=== PATIENT | female | born 1955 | race African-American/Black ===

== ENCOUNTER 2017-05-24 01:41 | Emergency (ER) | payer OTHER ==
[2017-05-24] MEDS ORDERED: Ketorolac Tromethamine 30 MG/ML VIAL ONE (02:56)
--- NOTE | 2017-05-24 08:26 | RAD ---
LEFT KNEE 4 VIEWS: Date: 05/24/17 HISTORY: Left knee pain. FINDINGS/IMPRESSION: Comparison made with exam of 03/07/17. Degenerative changes are again seen. No fracture, dislocation, or bony destruction is identified. POS: BUDDY
--- NOTE | 2017-05-24 08:28 | RAD ---
RIGHT KNEE 4 VIEWS: Date: 05/24/17 HISTORY: Fall. Right knee pain. FINDINGS/IMPRESSION: Degenerative changes are present. No acute fracture or dislocation is identified. POS: BUDDY
== END 2017-05-24 03:40 | disposition home or self-care (01) ==
LOC: ERS 01:41
DX: S80.02XA Contusion of left knee, initial encounter (principal); S80.01XA Contusion of right knee, initial encounter; M17.0 Bilateral primary osteoarthritis of knee; I25.2 Old myocardial infarction; E11.9 Type 2 diabetes mellitus without complications; E78.5 Hyperlipidemia, unspecified; I10 Essential (primary) hypertension; Z87.891 Personal history of nicotine dependence; W19.XXXA Unspecified fall, initial encounter
CPT/HCPCS: 96372; J1885

== ENCOUNTER 2017-07-28 19:04 | Inpatient (IN) | payer OTHER ==
[2017-07-28 20:15] LABS: Troponin I 0.096 ng/mL (< 0.028)
[2017-07-28 20:29] LABS: #Lymphocytes 2.4 thou/uL (1.20-3.40); #Monocytes 0.5 thou/uL (0.11-0.59); #Neutrophils 11.4 thou/uL (1.40-6.50); %Basophils 0.1 % (0.0-1.0); %Eosinophils 0.1 % (0.0-10.0); %Lymphocytes 16.8 % (21.0-51.0); %Monocytes 3.3 % (0.0-10.0); Mean Platelet Volume 11.3 fL (7.4-10.4); Red Blood Cell (RBC) Count 5.11 mill/uL (4.20-5.40); White Blood Cell (WBC) Count 14.3 thou/uL (4.8-10.8)
[2017-07-28 20:35] LABS: PTT 25.5 SEC (22.9-36.1); Prothrombin Time 12.8 SEC (12.0-14.7)
[2017-07-28 20:40] LABS: ALT (SGPT) 27 U/L (8-55); AST (SGOT) 11 U/L (5-34); Alkaline Phosphatase 80 U/L (40-150); Anion Gap 13 mmol/L (10-20); BUN (Urea Nitrogen) 50 mg/dL (9.8-20.1); Bilirubin, Total 0.5 mg/dL (0.2-1.2); Calc. Creatinine Clearance 0 mL/min (70-130); Calcium 8.6 mg/dL (7.8-10.44); Carbon Dioxide 24 mmol/L (22-29); Chloride 106 mmol/L (98-107); Estimated GFR-MDRD 20; Globulin 2.9 g/dL (2.4-3.5)
[2017-07-28] MEDS ORDERED: Furosemide 40 MG/4 ML VIAL ONE (21:08)
[2017-07-28] MEDS ORDERED: Heparin 25,000 units/D5W 500 ML ONE (21:08)
[2017-07-28] MEDS ORDERED: HYDROcodone/Acetaminophen 10/325 mg Tablet PO PRN (21:30)
[2017-07-28] MEDS ORDERED: Ondansetron ODT 4 MG TAB SL PRN (22:59)
[2017-07-28] MEDS ORDERED: Ondansetron HCl/PF 4 MG/2 ML Vial IVP PRN ×2 (22:59→23:06)
[2017-07-28] MEDS ORDERED: Acetaminophen 325 MG TAB PO PRN (22:59)
[2017-07-28] MEDS ORDERED: Dextrose 5% in Water 1,000 ML IV PRN (23:06)
[2017-07-28] MEDS ORDERED: Dextrose 50% Abboject 50 ML SYRINGE SLOW IVP PRN (23:06)
[2017-07-28] MEDS ORDERED: hydrOXYzine 25 MG TAB PO PRN (23:06)
[2017-07-28] MEDS ORDERED: Bisacodyl 5 MG TAB PO PRN (23:06)
[2017-07-28 23:49] LABS: Troponin I 0.104 ng/mL (< 0.028)
[2017-07-29 02:59] LABS: Troponin I 0.099 ng/mL (< 0.028)
--- NOTE | 2017-07-29 04:33 | HP ---
DATE OF ADMISSION: 07/28/2017 PRIMARY CARE PHYSICIAN: Dr. Fredy Lazar. CHIEF COMPLAINT: Chest pain. HISTORY OF PRESENT ILLNESS: This is a 61-year-old black female with past medical history of atrial f ibrillation, chronic kidney disease, type 2 diabetes, chronic idiopathic thrombocytopenia, who presen matty to the emergency room with complaint of chest pain. She reports sitting at home watching [place] ion when her pain started. She denied nausea and excessive sweating, radiation of pain. In the lane gency room, she was found to be volume overloaded, had a troponin level in the indeterminate range an d EKG showing atrial fibrillation. She also had an increase in her creatinine level and is significa nt from 2.15 to 2.93. She also has a mild leukocytosis with neutrophil percentage of 79.8. In the e mergency room, she has received 1 dose of Lasix and a dose of heparin. She reports feeling better wi th no current chest pain. ALLERGIES: PENICILLIN, IODINE. MEDICATIONS: 1. [place] 10/325 mg p.o. q.6 hours p.r.n. pain. 2. Hydroxyzine 25 mg p.o. t.i.d. p.r.n. itching. 3. Ferrous sulfate 325 mg p.o. b.i.d. 4. Gabapentin 600 mg p.o. t.i.d. 5. Pravastatin 40 mg p.o. q. day. 6. Diltiazem ER 120 mg p.o. q. day. 7. Metoprolol tartrate 75 mg p.o. b.i.d. 8. Lantus 22 units subcu twice a day. 9. Glipizide 5 mg p.o. twice a day. 10. Furosemide 40 mg p.o. q. day. 11. Promacta 25 mg take 2 tablets p.o. q. day. 12. Venlafaxine 150 mg p.o. q. day. 13. Nexium 40 mg p.o. q. day. PAST MEDICAL HISTORY: 1. Atrial fibrillation. 2. Coronary artery disease. 3. Hypertension. 4. Chronic idiopathic thrombocytopenia. 5. Chronic kidney disease stage 4. 6. Lumbar disk herniation. 7. Polyneuropathy. 8. Microcytic anemia. 9. History of cerebrovascular accident. 10. Generalized weakness. PAST SURGICAL HISTORY: 1. Splenectomy. 2. Colostomy. FAMILY HISTORY: Diabetes, hypertension, heart disease. SOCIAL HISTORY: Admits to smoking every day. Denies alcohol or illicit drugs. REVIEW OF SYSTEMS: General: Denies fever, chills, weight change, appetite change. HEENT: Reports headache, denies vision changes, sore throat, dysphagia. Skin: Denies rashes and lesions. Cardiova scular: Reports chest pain, substernal, now improved. Denies palpitations. Respiratory: Denies sh ortness of breath and cough. Gastrointestinal: Denies nausea, vomiting, abdominal pain, diarrhea, c onstipation. Genitourinary: Denies dysuria, hematuria, and discharge. Musculoskeletal: Reports ch ronic back pain, otherwise denies joint stiffness, and swelling. Neurologic: Reports generalized we akness. Denies syncope and dizziness. PHYSICAL EXAMINATION: GENERAL: Alert and oriented x3 with no acute distress. SKIN: No rashes or lesions. HEENT: Normocephalic. Pupils are equally round and reactive to light. Extraocular muscles intact. Moist mucous membranes with nonerythematous throat. HEART: Irregularly irregular. No murmurs. LUNGS: Sounds no wheezes. ABDOMEN: Nontender, nondistended. Bowel sounds heard throughout. MUSCULOSKELETAL: Normal strength and range of motion. NEUROLOGIC: Cranial nerves II-XII intact. Sensation within normal limits. LABORATORY STUDIES: White blood cell count 14.3, hemoglobin 14.5, hematocrit 46.0, platelets 223, ne utrophils 79.8%. PT 12.8, INR 1.0, PTT 25.5. Sodium 139, potassium 4.2, chloride 106, carbon dioxide 24, BUN 50, creatinine 2.93, glucose 353, donovan cium 8.6, AST 11, ALT 27, alkaline phosphatase 80, CK-MB 4.4, troponin 0.096. BNP 111.6, total prote in 6.0, albumin 3.1. EKG shows atrial fibrillation with a rate of 70. No ST or T-wave changes. ASSESSMENT AND PLAN: 1. Fluid overload. We will continue Lasix and monitor her kidney function. 2. Atrial fibrillation. We will consult Cardiology. Her bond trader is Dr. Dupree. 3. Acute on chronic kidney disease. We will consult her plate grainer, Dr. Bunch for evaluation. 4. Leukocytosis with an elevated neutrophil percentage. We will obtain a urinalysis, urine culture, blood culture, and chest x-ray. 5. Type 2 diabetes. We will continue the patient's long-acting insulin. We will also initiate hype rglycemia protocol. 6. Chronic idiopathic thrombocytopenia and her platelets look very good this evening. She has had n umbers as low as 5 recently, however. We will continue her home dose of Promacta and continue to mon itor. 7. Lumbar disk herniation and polyneuropathy neuropathy. We will continue gabapentin and Rhodhiss. The patient has had multiple hospitalizations in the past year. She has a lot of difficulty at home I believe. Every time I see her in the office, she does not know what medications she takes. I have discussed with her numerous times regarding the need for extra help for her. However, she has been reluctant and states that she is fine at home. I anticipate discharge to nursing home facility fr om this admission. I do believe the best situation for her health is a long-term nursing facility.
[2017-07-29] MEDS ORDERED: hydrALAZINE 20 MG/ML VIAL SLOW IVP PRN (05:26)
[2017-07-29 05:42] LABS: #Basophils 0.1 thou/uL (0.0-0.2); #Eosinphils 0.1 thou/uL (0.0-0.7); #Lymphocytes 4.5 thou/uL (1.20-3.40); #Neutrophils 9.5 thou/uL (1.40-6.50); %Basophils 0.5 % (0.0-1.0); %Eosinophils 0.4 % (0.0-10.0); %Lymphocytes 29.5 % (21.0-51.0); %Monocytes 6.6 % (0.0-10.0); Hematocrit 46.3 % (36.0-47.0); Mean Platelet Volume 11.2 fL (7.4-10.4); Red Blood Cell (RBC) Count 5.14 mill/uL (4.20-5.40); White Blood Cell (WBC) Count 15.1 thou/uL (4.8-10.8)
[2017-07-29] MEDS: Furosemide 40 MG/4 ML VIAL SLOW IVP SCH ×2 (05:52→14:16)
[2017-07-29] MEDS: cloNIDine 0.2 MG TAB PO SCH ×2 (05:52→20:36)
[2017-07-29 06:03] LABS: Anion Gap 10 mmol/L (10-20); BUN (Urea Nitrogen) 49 mg/dL (9.8-20.1); Calc. Creatinine Clearance 41 mL/min (70-130); Calcium 8.7 mg/dL (7.8-10.44); Carbon Dioxide 29 mmol/L (22-29); Chloride 104 mmol/L (98-107); Estimated GFR-MDRD 21
[2017-07-29] MEDS: HumaLOG 300 UNITS/3 ML VIAL SC PRN ×3 (06:09→17:28)
[2017-07-29 06:35] LABS: Bacteria/HPF 4+ HPF (None Seen); Hyaline Casts/LPF NONE SEEN LPF (0-3 Hyaline)
--- NOTE | 2017-07-29 08:22 | PRG ---
DATE OF SERVICE: 07/29/2017 SUBJECTIVE: The patient is sleeping in bed, easily awoken. She denies pain this morning including chest pain. She states she did pretty well overnight. PHYSICAL EXAMINATION: VITAL SIGNS: Blood pressure 177/93, heart rate 61, temperature 98.3, oxygen saturation 95% on room air. GENERAL: Alert and oriented x3, no acute distress. HEENT: Normocephalic. Pupils equally round and reactive to light. Extraocular muscles intact. HEART: Irregularly irregular, 2/6 systolic murmur, no gallops or rubs. LUNGS: Distant breath sounds, no wheezing. ABDOMEN: Soft, nontender, nondistended. Bowel sounds heard throughout. EXTREMITIES: 1+ pitting edema bilaterally. No cyanosis or clubbing. SKIN: No rashes or lesions. LABORATORY DATA: White blood cell count 15.1, hemoglobin 14.2, hematocrit 46.3 , platelets 219, neutrophils 63%. Sodium 139, potassium 3.7, chloride 104, carbon dioxide 29, BUN 49, creatinine 2.83, glucose 299, calcium 8.7. Troponins 0.096, 0.104, 0.099. BNP 811.6. Urinalysis shows white blood cells too numerous to count, squamous cells 7-10. Urine bacteria 4+. ASSESSMENT AND PLAN: 1. Fluid overload. She appears to be feeling a little better, breathing better. We will continue Lasix. 2. Atrial fibrillation, will consult Cardiology, her accounts supervisor is Dr. Dupree. 3. Acute on chronic kidney disease. Dr. Bunch will be called for consultation today. Her creatinine is elevated, but decreased slightly from last night. 4. Leukocytosis. Urinalysis shows possible urinary tract infection; however, does not appear to be a complete urinalysis. SHe has no urinary symptoms currently. We will await results of urine culture, blood culture and chest x- ray. 5. Type 2 diabetes, her glucose is elevated; however, she did not receive her long-acting insulin last night. She should receive that today and continue twice a day. She is on hyperglycemia protocol. 6. Chronic idiopathic thrombocytopenia, platelets continued to look good. She will continue her home dose of Promacta. 7. Lumbar disk herniation and polyneuropathy. We will continue gabapentin and [place]. MTDD
--- NOTE | 2017-07-29 08:35 | RAD ---
2 VIEWS CHEST: Date: 07/29/17 COMPARISON: 08/18/16. HISTORY: Chest pain with elevated white blood cells. FINDINGS: Stable enlargement of the cardiac silhouette and atherosclerotic calcifications of the aortic arch. N o pneumothorax, pleural fluid, focal consolidation, or alveolar edema. Stable mild diffuse increased linear interstitial density. IMPRESSION: Stable appearance of the chest. POS: OFF
[2017-07-29] MEDS: Nicotine 21 MG PATCH TD SCH (08:46)
[2017-07-29] MEDS: Docusate 100 MG CAP PO SCH ×2 (08:46→20:36)
[2017-07-29] MEDS: Venlafaxine HCl XR 150 MG CAP PO SCH (08:46)
[2017-07-29] MEDS: Insulin Detemir 100 UNITS/ML 22 UNITS in Pre-Filled Syringe 1 EACH SC SCH ×2 (08:47→20:36)
[2017-07-29] MEDS: Famotidine 20 MG TAB PO SCH (08:47)
[2017-07-29] MEDS: Gabapentin 300 MG CAP PO SCH ×3 (08:47→20:35)
[2017-07-29] MEDS ORDERED: ELTROMBOPAG OLAMINE PO SCH (09:00)
[2017-07-29] MEDS ORDERED: Famotidine 20 MG TAB PO SCH (09:00)
--- NOTE | 2017-07-29 11:47 | CON ---
DATE OF CONSULTATION: 07/29/2017 REASON FOR CONSULTATION: Chest pain. HISTORY OF PRESENT ILLNESS: Ms. Nettles is a pleasant 61-year-old woman who I have seen and evaluat ed in the past. She has a history of paroxysmal atrial fibrillation, not on anticoagulation therapy due to history of idiopathic thrombocytopenia. She recently presented with atypical chest pain. She was seen and evaluated in an outlying facility. The chest pain occurred at rest. Her troponin was minimally elevated, likely related to increased creatinine of 2.93. Her pain was described as mild, sharp with no ameliorating, exacerbating, or precipitating factors present. She is currently pain fr ee. Her last stress study performed in the office was last year and was not found to have significant isc hemia. PAST MEDICAL HISTORY: A. fib, CAD, hypertension, idiopathic thrombocytopenia, chronic kidney disease , polyneuropathy, microcytic anemia, CVA, colostomy, splenectomy. SOCIAL HISTORY: Positive tobacco and negative alcohol use. REVIEW OF SYSTEMS: Ten-point review of systems is reviewed and as above, otherwise negative. PHYSICAL EXAMINATION: VITAL SIGNS: Blood pressure 177/93, initial blood pressure 216/83, pulse 63, temperature 97.7. GENERAL: Patient is a pleasant male/female who is in no acute distress. The patient appears her stat ed age. NEUROLOGIC: The patient is alert and oriented times 3 with no focal neurologic deficits. HEENT: Sclerae without icterus. Mouth has moist mucous membranes with normal pallor. NECK: No JVD. Carotid upstroke brisk. No bruits bilaterally. LUNGS: Clear to auscultation with unlabored respirations. BACK: No scoliosis or kyphosis. CARDIAC: Regular rate and rhythm with normal S1 and S2. No S3 or S4 noted. No significant rubs, mu rmurs, thrills, or gallops noted throughout the precordium. PMI is not displaced. There is no austyn ternal heave. ABDOMEN: Soft, nontender, nondistended. No peritoneal signs present. No hepatosplenomegaly. No ab normal striae. EXTREMITIES: 2+ femoral and 2+ dorsalis pedis pulses. No cyanosis, clubbing, or edema. SKIN: No gross abnormalities. PERTINENT LABS: Hemoglobin 14.2, creatinine 2.83. EKG: Normal sinus rhythm with nonspecific ST-T w ave changes. Peak troponin 0.1. BNP of 811. IMPRESSION: 1. Malignant hypertension. 2. Atypical chest pain. 3. Acute on chronic kidney disease with GFR of 21. RECOMMENDATIONS: Symptoms appear atypical. She had a recent stress study, was not found to have sign ificant ischemia. Her elevated troponin likely related to blood pressure in addition to elevated cre atinine. No acute changes are noted. She is currently in sinus rhythm. At this point, we will cont inue to treat medically. Certainly would be difficult for Ms. Nettles given a history of idiopathic thrombocytopenia for any type of aggressive coronary interventions. She agrees. At this point, wou ld not be warranted given she is currently pain free. From my standpoint, I have no further recommen dations.
[2017-07-29] MEDS: Pravastatin Sodium 40 MG TAB PO SCH (20:36)
--- NOTE | 2017-07-30 00:08 | CON ---
DATE OF CONSULTATION: 07/29/2017 CONSULTING PHYSICIAN: Dr. Fredy Lazar. REASON FOR CONSULTATION: Acute kidney injury. REASON FOR ADMISSION: Chest pain. HISTORY OF PRESENT ILLNESS: This is a 61-year-old female admitted with chest pain and was found to h ave elevated creatinine. Her creatinine was found to be 2.93. Her baseline is around 2.1-2.4. The patient is feeling slightly better. No fever or chills. No nausea or vomiting. She is having c ardiac workup. PAST MEDICAL HISTORY: Positive for atrial fibrillation, coronary artery disease, hypertension, CKD, thrombocytopenia, lumbar disk herniation, polyneuropathy, microcytic anemia, CVA and generalized weak ness. PAST SURGICAL HISTORY: Splenectomy and colostomy. HOME MEDICATIONS: [place], hydroxyzine, ferrous sulfate, gabapentin, pravastatin, diltiazem, metoprolo l, Lantus, glipizide, furosemide, Promacta, venlafaxine, and Nexium. ALLERGIES: PENICILLIN and IODINE. SOCIAL HISTORY: No smoking, alcohol or illicit drug abuse. FAMILY HISTORY: Positive for diabetes. REVIEW OF SYSTEMS: The following complete review of systems was negative, unless otherwise mentioned in the HPI or below: Constitutional: Weight loss or gain, ability to conduct usual activities. Skin: Rash, itching. Eyes: Double vision, pain. ENT/Mouth: Nose bleeding, neck stiffness, pain, tenderness. Cardiovascular: Palpitations, dyspnea on exertion, orthopnea. Respiratory: Shortness of breath, wheezing, cough, hemoptysis, fever or night sweats. Gastrointestinal: Poor appetite, abdominal pain, heartburn, nausea, vomiting, constipation, or diarr hea. Genitourinary: Urgency, frequency, dysuria, nocturia. Musculoskeletal: Pain, swelling. Neurologic/Psychiatric: Anxiety, depression. Allergy/Immunologic: Skin rash, bleeding tendency. PHYSICAL EXAMINATION: GENERAL: This is a morbidly obese female, in no apparent distress. VITAL SIGNS: Temperature 97.6, pulse 60, respiratory rate 20, blood pressure 156/85. HEENT: Atraumatic, normocephalic. Oral mucosa is moist. NECK: Supple, no masses. CARDIOVASCULAR: S1, S2 heard. Rate and rhythm regular. RESPIRATORY: Clear. GASTROINTESTINAL: Abdomen is soft. MUSCULOSKELETAL: No tenderness. No edema. DERMATOLOGIC: No skin rash. NEUROLOGIC: Alert and awake. PSYCHIATRIC: Mood and affect normal. LABORATORY DATA: Potassium is 3.7, BUN is 49, creatinine is 2.83. ASSESSMENT AND PLAN: 1. Acute kidney injury on chronic kidney disease, stage 5. No acute indication for dialysis. We wi ll monitor. Continue supportive care. 2. Avoid nephrotoxins. 3. Hypertension. 4. Obesity. 5. Anemia, mild. Hemoglobin is stable. 6. Edema, controlled. 7. Plan is to continue to monitor renal function closely. Renally dose all the medications. Medica tion list reviewed, currently on Lasix. 8. Cardiorenal syndrome. Continue on Lasix. Thank you for the consultation.
[2017-07-30] MEDS: Furosemide 40 MG/4 ML VIAL SLOW IVP SCH ×2 (05:14→14:54)
[2017-07-30 05:37] LABS: #Basophils 0.1 thou/uL (0.0-0.2); #Eosinphils 0.2 thou/uL (0.0-0.7); #Lymphocytes 3.7 thou/uL (1.20-3.40); #Monocytes 0.8 thou/uL (0.11-0.59); %Basophils 0.8 % (0.0-1.0); %Eosinophils 1.6 % (0.0-10.0); %Lymphocytes 34.4 % (21.0-51.0); %Monocytes 7.1 % (0.0-10.0); Hematocrit 46.9 % (36.0-47.0); Mean Platelet Volume 11.5 fL (7.4-10.4); Red Blood Cell (RBC) Count 5.22 mill/uL (4.20-5.40); White Blood Cell (WBC) Count 10.6 thou/uL (4.8-10.8)
[2017-07-30 05:47] LABS: Anion Gap 12 mmol/L (10-20); BUN (Urea Nitrogen) 45 mg/dL (9.8-20.1); Calc. Creatinine Clearance 42 mL/min (70-130); Calcium 8.7 mg/dL (7.8-10.44); Carbon Dioxide 30 mmol/L (22-29); Chloride 103 mmol/L (98-107); Estimated GFR-MDRD 21
[2017-07-30] MEDS: Venlafaxine HCl XR 150 MG CAP PO SCH (10:15)
[2017-07-30] MEDS: Famotidine 20 MG TAB PO SCH (10:15)
[2017-07-30] MEDS: Docusate 100 MG CAP PO SCH ×2 (10:16→21:48)
[2017-07-30] MEDS: cloNIDine 0.2 MG TAB PO SCH ×2 (10:16→10:19)
[2017-07-30] MEDS: Gabapentin 300 MG CAP PO SCH ×3 (10:16→21:48)
[2017-07-30] MEDS: Nicotine 21 MG PATCH TD SCH (10:17)
[2017-07-30] MEDS: Insulin Detemir 100 UNITS/ML 22 UNITS in Pre-Filled Syringe 1 EACH SC SCH ×2 (10:21→21:56)
[2017-07-30] MEDS: HumaLOG 300 UNITS/3 ML VIAL SC PRN (11:34)
--- NOTE | 2017-07-30 12:57 | PRG ---
DATE OF SERVICE: 07/30/2017 SUBJECTIVE: Patient was seen and examined at bedside and overnight events noted. Patient denies any shortness of breath or chest pain or palpitation. No history of nausea or vomiting or diarrhea or f ever or chills or cramps. OBJECTIVE: GENERAL: This is a morbidly obese female in no apparent distress. VITAL SIGNS: Temperature 97.7, pulse 79, respiratory rate 18, blood pressure 152/85. HEENT: Atraumatic, normocephalic. Oral mucosa is moist. NECK: Supple CARDIOVASCULAR: S1, S2 heard. Rate and rhythm regular. RESPIRATORY: Clear to auscultation. GASTROINTESTINAL: Abdomen is soft. MUSCULOSKELETAL: No tenderness, no edema. DERMATOLOGIC: No skin rash. NEUROLOGIC: Alert and awake and oriented x3. No focal neurologic deficits. Moving all the extremit ies. PSYCHIATRIC: Mood and affect normal LABORATORY DATA: Potassium is 3.6, BUN is 45, and creatinine is 2.7. ASSESSMENT AND PLAN: 1. Acute kidney injury on chronic kidney disease stage. Renal function is stable. Creatinine is be tter from 2.7 from 2.9 on remission, BUN is stable. 2. Cardiorenal syndrome. 3. Hypertension. 4. Obesity. 5. Edema. Overall, renal function is stable, close to her baseline. We will follow. Avoid nephrotoxins.
--- NOTE | 2017-07-30 14:19 | PRG ---
DATE OF SERVICE: 07/30/2017 SUBJECTIVE: Ms. Nettles is very somnolent. Her blood pressure is improved. She did take a dose of [place] in addition to clonidine. PHYSICAL EXAMINATION: GENERAL: She does awaken to voice but quickly falls asleep. VITAL SIGNS: Blood pressure 115/71, pulse 82, temperature 98.4. LUNGS: Clear to auscultation. HEART: Regular rate and rhythm. ABDOMEN: Soft, nontender, nondistended. EXTREMITIES: No edema. PERTINENT LABORATORY DATA: Hemoglobin 14.6, creatinine 2.76, which is down from 2.83. IMPRESSION: 1. Somnolence. 2. Hypertension. 3. Atrial fibrillation? RECOMMENDATIONS: We will likely decrease her clonidine down to 0.1 b.i.d. This may be somnolence fr om centrally acting clonidine. We will increase hydralazine to 50 mg t.i.d. Hold all narcotics. Av oid anticoagulation therapy given history of ITP.
--- NOTE | 2017-07-30 14:32 | CON ---
DATE OF CONSULTATION: 07/30/2017 HISTORY OF PRESENT ILLNESS: Mr. Nettles is a 61-year-old female. She was admitted with complaints of chest discomfort. She has been seen by the heart doctors in the past. She has history of atrial fibrillation. She has had a negative stress test in the past. She says she feels 100% better today. PAST MEDICAL HISTORY: Remarkable for coronary artery disease, atrial fibrillation, hypertension, thr ombocytopenia, chronic kidney disease, history of CVA, history of splenectomy, and history of colosto my. SOCIAL HISTORY: She is a smoker, but a nondrinker. REVIEW OF SYSTEMS: Otherwise negative. She says she is back to her baseline. PHYSICAL EXAMINATION: GENERAL: She is afebrile, heart rate 71. VITAL SIGNS: Blood pressure 152/85. Oximetry is 92 on 2 liters. HEENT: Pupils are equal. Sclerae is anicteric. NECK: Supple. LUNGS: Clear. HEART: Regular rhythm. S1 and S2 are normal. ABDOMEN: Soft and nontender. EXTREMITIES: Without asymmetry. LABORATORY DATA: White count 10.6, hemoglobin 14.6, platelets 201,000. Sodium 141, potassium 3.6, c hloride 103, bicarbonate 30, BUN 45, creatinine 2.76, creatinine was 2.83 yesterday, 2.93 the day bef ore. Chest radiographs showed no pulmonary edema on presentation. IMPRESSION: 1. Hypertension, by history has been poorly controlled. 2. Chest discomfort, felt to be possibly noncardiac chest discomfort. 3. Chronic kidney disease. She is stable to move out of the Intensive Care Unit, in my opinion, for continued monitoring of her blood pressure and rhythm.
[2017-07-30] MEDS: hydrALAZINE 25 MG TAB PO SCH ×3 (14:42→21:56)
[2017-07-30] MEDS: Pravastatin Sodium 40 MG TAB PO SCH (21:59)
[2017-07-31 05:34] LABS: Anion Gap 11 mmol/L (10-20); BUN (Urea Nitrogen) 51 mg/dL (9.8-20.1); Calc. Creatinine Clearance 35 mL/min (70-130); Calcium 8.5 mg/dL (7.8-10.44); Carbon Dioxide 31 mmol/L (22-29); Chloride 102 mmol/L (98-107); Estimated GFR-MDRD 17
[2017-07-31] MEDS: Furosemide 40 MG/4 ML VIAL SLOW IVP SCH (05:34)
[2017-07-31 05:47] LABS: Band 2 % (5-11); Hematocrit 44.8 % (36.0-47.0); Mean Platelet Volume 11.2 fL (7.4-10.4); Neutrophil 73 % (42-75); Reactive Lymphocytes 1 % (0-10); Red Blood Cell (RBC) Count 4.96 mill/uL (4.20-5.40); White Blood Cell (WBC) Count 17.6 thou/uL (4.8-10.8)
[2017-07-31] MEDS ORDERED: cloNIDine 0.1 MG TAB PO SCH (09:00)
[2017-07-31] MEDS: Gabapentin 300 MG CAP PO SCH ×3 (09:26→20:54)
[2017-07-31] MEDS: Venlafaxine HCl XR 150 MG CAP PO SCH (09:27)
[2017-07-31] MEDS: hydrALAZINE 25 MG TAB PO SCH ×3 (09:27→20:54)
[2017-07-31] MEDS: Insulin Detemir 100 UNITS/ML 22 UNITS in Pre-Filled Syringe 1 EACH SC SCH ×2 (09:27→20:53)
[2017-07-31] MEDS: Famotidine 20 MG TAB PO SCH (09:27)
[2017-07-31] MEDS: Nicotine 21 MG PATCH TD SCH (09:28)
[2017-07-31] MEDS: Docusate 100 MG CAP PO SCH ×2 (09:29→20:54)
[2017-07-31] MEDS: HumaLOG 300 UNITS/3 ML VIAL SC PRN (12:37)
--- NOTE | 2017-07-31 13:02 | PRG ---
DATE OF SERVICE: 06/29/2017 SUBJECTIVE: Patient was seen and examined at bedside and overnight events noted. Patient denies any shortness of breath or chest pain or palpitation. No history of nausea or vomiting or diarrhea or f ever or chills or cramps. OBJECTIVE: GENERAL: This is a morbidly obese female in no apparent distress. VITAL SIGNS: Temperature 98.1, pulse 84, respiratory 20, blood pressure 96/74. HEENT: Atraumatic, normocephalic. Oral mucosa is moist. NECK: Supple. CARDIOVASCULAR: S1, S2 heard. Rate and rhythm regular. RESPIRATORY: Clear to auscultation. GASTROINTESTINAL: Abdomen is soft. MUSCULOSKELETAL: No tenderness, no edema. DERMATOLOGIC: No skin rash. NEUROLOGIC: Alert and awake and oriented x3. No focal neurologic deficits. Moving all the extremit ies. PSYCHIATRIC: Mood and affect normal. LABORATORY DATA: Creatinine is 3.3, potassium is 3.7. ASSESSMENT AND PLAN: 1. Acute kidney injury on chronic kidney disease stage 3. Renal function is worse today, most likel y from diuresis. Agree with holding the diuretics and monitor. Limit fluid intake. 2. Cardiorenal syndrome, Lasix on hold due to acute kidney injury. 3. Elevated BUN and creatinine. 4. Hypertension, stable. 5. Obesity. 6. Edema, controlled. The patient possibly has sleep apnea and need outpatient followup.
--- NOTE | 2017-07-31 20:12 | PRG ---
DATE OF SERVICE: 07/31/2017 SUBJECTIVE: Ms. Nettles did well overnight. She had no new complaints. OBJECTIVE: VITAL SIGNS: She is afebrile, heart rate in the 70s, blood pressure 137/62, respiratory rate is 15, oximetry is 98 on 2 liters. LUNGS: Clear. HEART: Regular rhythm. ABDOMEN: Soft. IMPRESSION: Hypertension and ? atrial fibrillation. She appears to be doing well at this point in t [facility]. She can probably be transferred out of the Intermediate Care Unit.
[2017-07-31] MEDS: Pravastatin Sodium 40 MG TAB PO SCH (20:54)
[2017-08-01 05:26] LABS: #Eosinphils 0.2 thou/uL (0.0-0.7); #Lymphocytes 3.7 thou/uL (1.20-3.40); #Monocytes 0.8 thou/uL (0.11-0.59); #Neutrophils 8.9 thou/uL (1.40-6.50); %Basophils 0.3 % (0.0-1.0); %Eosinophils 1.3 % (0.0-10.0); %Lymphocytes 27.3 % (21.0-51.0); Hematocrit 43.7 % (36.0-47.0); Mean Platelet Volume 11.4 fL (7.4-10.4); White Blood Cell (WBC) Count 13.6 thou/uL (4.8-10.8)
[2017-08-01 05:43] LABS: Anion Gap 14 mmol/L (10-20); BUN (Urea Nitrogen) 49 mg/dL (9.8-20.1); Calc. Creatinine Clearance 3 mL/min (70-130); Calcium 8.7 mg/dL (7.8-10.44); Carbon Dioxide 28 mmol/L (22-29); Chloride 101 mmol/L (98-107); Estimated GFR-MDRD 17
[2017-08-01 06:30] VITALS: BMI 42.6
--- NOTE | 2017-08-01 08:00 | PRG ---
DATE OF SERVICE: 08/01/2017 SUBJECTIVE: The patient is lying in bed asleep. She is easily awoken. She states she feels better and denies pain this morning. She states her breathing is good. PHYSICAL EXAMINATION: VITAL SIGNS: Temperature 99.4, pulse 88, respirations 16, oxygen saturation 92% on 2 liters, blood p ressure 124/79. GENERAL: Alert and oriented x3, in no acute distress. HEENT: Normocephalic. Pupils equally round and reactive to light. Extraocular muscles intact. HEART: Regular rate and rhythm, 2/6 systolic murmur, no gallops or rubs. LUNGS: Distant breath sounds, no wheezing. ABDOMEN: Soft, nontender, nondistended. Bowel sounds heard throughout. EXTREMITIES: Trace edema bilaterally. No cyanosis or clubbing. SKIN: No rashes or lesions. LABORATORY DATA: White blood cell count 13.6, hemoglobin 13.4, hematocrit 43.7, platelets 163, neutr ophils 65.2%. Sodium 139, potassium 3.5, chloride 101, carbon dioxide 28, BUN 49, creatinine 3.37, glucose 84, calc ium 8.7. BNP 62.3. Urine culture positive for Enterobacter cloacae greater than 100,000, sensitive to multiple antibioti cs. ASSESSMENT AND PLAN: 1. Acute on chronic kidney disease. Her creatinine continues to worsen. Diuresis has been stopped. Dr. Bunch to continue to follow. 2. Fluid overload. This is improved. Lasix has been stopped. 3. Atrial fibrillation. She is currently in sinus rhythm. 4. Urinary tract infection. Urine culture positive for Enterobacter species. We will start Cipro f or 5 days. 5. Type 2 diabetes, glucose is within normal range currently. She is receiving a long-acting insuli n as well as hyperglycemia protocol. 6. Chronic idiopathic thrombocytopenia. She is without her Promacta during this hospital visit and platelets continue to decrease. She has not established with a linemarker here in town. We will c onsult Hematology to establish with her while she is in the hospital. 7. Lumbar disk herniation polyneuropathy. We will continue gabapentin. She is not having pain at t his time. DISPOSITION: I have discussed with her the need for retirement facility placement; however, she is reluctant and wants to go home.
[2017-08-01] MEDS: Famotidine 20 MG TAB PO SCH (09:58)
[2017-08-01] MEDS: hydrALAZINE 25 MG TAB PO SCH ×3 (09:58→20:16)
[2017-08-01] MEDS: Gabapentin 300 MG CAP PO SCH ×3 (09:58→20:15)
[2017-08-01] MEDS: Nicotine 21 MG PATCH TD SCH (09:58)
[2017-08-01] MEDS: Venlafaxine HCl XR 150 MG CAP PO SCH (09:58)
[2017-08-01] MEDS: Docusate 100 MG CAP PO SCH ×2 (09:58→20:15)
[2017-08-01] MEDS: Insulin Detemir 100 UNITS/ML 22 UNITS in Pre-Filled Syringe 1 EACH SC SCH ×2 (10:00→21:26)
--- NOTE | 2017-08-01 14:57 | PRG ---
DATE OF SERVICE: 08/01/2017 SUBJECTIVE: This is a 61-year-old female, being seen for acute kidney injury. The patient denies any nausea, vomiting, or chest pain. OBJECTIVE: See above. GENERAL: Patient is awake, alert. VITAL SIGNS: Pulse 88, blood pressure 124/79. GENERAL APPEARANCE AND MENTAL STATUS: Fair. HEAD/NECK: Normocephalic. Atraumatic. EYES: EOMI. No deformity. EARS: Clear. No ulcers. NOSE: Intact. No lesions. MOUTH: Clear. No discharge. THROAT: Clear. No exudate. LUNGS: Clear. No crackles. CARDIAC: S1, S2. No rub. ABDOMEN: Benign. BS+. GENITALIA/RECTUM: [place] absent. BACK/EXTREMITIES: Edema 0+, ulcer. NEUROLOGICAL: Alert and motor intact. SKIN: Rash - bruise. LYMPHATICS: Edema - ulcer. LABORATORY DATA: reviewd.. ASSESSMENT AND RECOMMENDATIONS: 1. Chronic kidney disease, stage 4, with acute kidney injury. Creatinine is stable. No indication for dialysis. 2. Anemia, stable. 3. Medications based on glomerular filtration rate are appropriate. No indication for dialysis. MTDD
[2017-08-01] MEDS: Cipro 250 MG TAB PO SCH (20:15)
[2017-08-01] MEDS: Pravastatin Sodium 40 MG TAB PO SCH (20:21)
--- NOTE | 2017-08-01 23:28 | CON ---
DATE OF CONSULTATION: 08/01/2017 REASON FOR CONSULTATION: Chronic ITP. HISTORY OF PRESENT ILLNESS: Ms. Nettles is a 61-year-old -Iranian female, who presented to the emergency room with complaints of chest pain. She had indeterminate troponin and an elevated creatinine, so was admitted for further evaluation. The patient has a history of idiopathic thrombocytopenia purpura. She was diagnosed in 1997. She states she had a splenectomy in the past and has been on Promacta off and on over the past several years. Her occupational safety and health manager is Dr. Stevenson in [place]. On admission, her platelet count was 223, 000. She has been off her Promacta since admission and they have dropped to 163 ,000. The patient states that she has not been taking the Promacta over the past few months. She denies any bruising or bleeding. No rash. No epistasis. PAST MEDICAL HISTORY: 1. ITP. 2. Atrial fibrillation. 3. Coronary artery disease. 4. Hypertension. 5. Chronic kidney disease 4. 6. History of cerebrovascular accident. 7. Anemia. 8. Diabetes. PAST SURGICAL HISTORY: 1. Splenectomy. 2. Colonoscopy. ALLERGIES: PENICILLIN and IODINE. HOME MEDICATIONS: 1. Clonidine 0.2 mg b.i.d. 2. Diltiazem 120 mg daily. 3. Ferrous sulfate 325 b.i.d. 4. Lasix 40 mg daily. 5. Gabapentin 300 mg daily. 6. Glucotrol 10 mg b.i.d. 7. Insulin b.i.d. 8. Protonix 40 mg daily. 9. Prednisone 50 mg b.i.d. FAMILY HISTORY: History of diabetes. No blood disorders. SOCIAL HISTORY: Everyday smoker, single, lives with her fiance. No alcohol or illicit drug use. REVIEW OF SYSTEMS: Twelve-point review of systems is negative except for noted in HPI. PHYSICAL EXAMINATION: VITAL SIGNS: Temperature is 98.5, pulse is 84, respiratory rate 18, blood pressure is 149/75. She is 91% on 2 liters. GENERAL: Obese female, in no acute distress. HEENT: Normocephalic, atraumatic. Pupils are equal and reactive to light. NECK: Supple. CARDIOVASCULAR: Regular rate and rhythm. LUNGS: Clear to auscultation. ABDOMEN: Soft, nontender, bowel sounds are positive. EXTREMITIES: No clubbing, cyanosis, or edema. SKIN: No rash. HEMATOLOGIC: No petechia or purpura. NEUROLOGICAL: Nonfocal. PSYCHIATRIC: The patient is alert and oriented. PERTINENT LABORATORY AND X-RAYS: Current WBCs are 13.6, hemoglobin 13.4, hematocrit 43.7, platelet count is 163,000, 65% neutrophils, 27% lymphocytes. Sodium 139, potassium 3.5, chloride 101, CO2 is 28, BUN is 49, creatinine 3.37, calcium is 8.7. BNP is 811.6. Serum total protein is 6, albumin 3.1, globulin 2.9, total bilirubin is 0.5, AST 11, ALT is 27, alkaline phosphatase is 80. Urine showed 4+ bacteria. Drug screen was positive for opiates. IMPRESSION: 1. Chronic immune thrombocytopenic purpura. 2. Atrial fibrillation. 3. Urinary tract infection. 4. Leukocytosis likely secondary to urinary tract infection. DISCUSSION: Review of the patient's home medications provided by the patient showed no bottle of Promacta. She does state she has not taken it for several months; however, she had a platelet count of 43,000 in May with an increase to 223,000 on admission. I suspect that she has been taking Promacta and just does not have the bottle available. Given her recent history of low platelets, I think she needs to resume Promacta. I do not believe this facility supplies this medication, so she would need to resume upon discharge or bring her own medication to the hospital. She can follow up in our clinic as an outpatient to establish care and we will be happy to monitor her platelets. Thank you for the consult. ANTON
[2017-08-02 05:07] LABS: #Basophils 0.1 thou/uL (0.0-0.2); #Eosinphils 0.2 thou/uL (0.0-0.7); #Lymphocytes 3.5 thou/uL (1.20-3.40); #Neutrophils 7.4 thou/uL (1.40-6.50); %Basophils 0.6 % (0.0-1.0); %Eosinophils 1.5 % (0.0-10.0); %Lymphocytes 29.2 % (21.0-51.0); %Monocytes 7.9 % (0.0-10.0); Red Blood Cell (RBC) Count 4.93 mill/uL (4.20-5.40); White Blood Cell (WBC) Count 12.1 thou/uL (4.8-10.8)
[2017-08-02 05:26] LABS: Anion Gap 14 mmol/L (10-20); BUN (Urea Nitrogen) 40 mg/dL (9.8-20.1); Calc. Creatinine Clearance 37 mL/min (70-130); Calcium 8.8 mg/dL (7.8-10.44); Carbon Dioxide 27 mmol/L (22-29); Chloride 104 mmol/L (98-107); Estimated GFR-MDRD 19
[2017-08-02] MEDS: Cipro 250 MG TAB PO SCH (06:38)
[2017-08-02] MEDS ORDERED: Sodium Chloride 0.9% 10 ML ONE (08:14)
--- NOTE | 2017-08-02 08:18 | DIS ---
ADMISSION DIAGNOSES: 1. Fluid overload. 2. Atrial fibrillation. 3. Acute on chronic kidney disease. 4. Leukocytosis. 5. Type 2 diabetes. 6. Chronic idiopathic thrombocytopenia. 7. Lumbar disk herniation with polyneuropathy. DISCHARGE DIAGNOSES: 1. Acute on chronic kidney disease. 2. Fluid overload, improved. 3. Atrial fibrillation. 4. Urinary tract infection. 5. Type 2 diabetes. 6. Chronic idiopathic thrombocytopenia. 7. Lumbar disk herniation with polyneuropathy. DISCHARGE MEDICATIONS: 1. Cipro 500 mg p.o. b.i.d. for 5 days. 2. Diltiazem 120 mg p.o. daily. 3. Promacta 50 mg p.o. daily. 4. Clonidine 0.2 mg p.o. b.i.d. 5. Ferrous sulfate 325 mg p.o. b.i.d. 6. Furosemide 40 mg p.o. daily. 7. Gabapentin 600 mg p.o. t.i.d. 8. Glipizide 10 mg p.o. b.i.d. 9. Healy 10/325 mg p.o. q.6h. p.r.n. pain. 10. Hydroxyzine 25 mg p.o. t.i.d. p.r.n. itching. 11. Lantus 22 units subcu b.i.d. 12. Pantoprazole 40 mg p.o. daily. CONSULTS: 1. Dr. Dupree, Cardiology. 2. Dr. Bunch of Nephrology. 3. Dr. Khanna, Pulmonology. 4. Dr. Dejesus, Hematology. PROCEDURES: None. HOSPITAL COURSE: This is a 61-year-old black female with past medical history of atrial fibrillation , chronic kidney disease, type 2 diabetes, chronic idiopathic thrombocytopenia and medical noncomplia nce who presented to the emergency room with complaint of chest pain. For her chest pain, she was se en by Dr. Dupree and it was determined that this was most likely not due to a cardiac cause. She was fluid overloaded, likely related to worsening kidney function. Initially she had some mild diffi culty breathing, but this improved with diuresis. Dr. Bunch evaluated the patient and her creatini ne was increasing. However, this started to come down prior to discharge. Diuresis was stopped. Initially, she had leukocytosis with elevated neutrophils. She was found to have bacteria growing in the urine culture. She will continue Cipro twice a day for 5 more days. As for her type 2 diabetes, she was restarted on her home medications. Her glucose levels were initi ally high, but came down to normal range and even below normal. This is likely due to having very po or diet at home, but not eating as much here in the hospital. She will be discharged with her regula r home medications for diabetes. For chronic idiopathic thrombocytopenia, she is very noncompliant with medications. She generally cook s no idea what medications she is supposed to be on. She has had multiple hospitalizations for havin g very low platelets. She usually goes to [facility] and has had platelets as low as 500 0. I have had multiple discussions with her regarding her health at home. She does not do well at home. Due to her insurance, she does not have home health with [facility]. However, she does have p froilan services through [facility], but they only provide nonmedical help at home. I have at tempted to get her into [facility] facility, but she refuses. DISPOSITION: Guarded. DISCHARGE INSTRUCTIONS: 1. Discharge: To home. 2. Activity: Ad salima. 3. Diet: Heart healthy with low carbohydrate diet. 4. Followup: Follow up with me in 5-7 days in my office. Also, establish care with the Oncology Ce ted for thrombocytopenia.
[2017-08-02] MEDS: Venlafaxine HCl XR 150 MG CAP PO SCH (09:18)
[2017-08-02] MEDS: Docusate 100 MG CAP PO SCH (09:18)
[2017-08-02] MEDS: Gabapentin 300 MG CAP PO SCH (09:18)
[2017-08-02] MEDS: hydrALAZINE 25 MG TAB PO SCH (09:19)
[2017-08-02] MEDS: Nicotine 21 MG PATCH TD SCH (09:19)
[2017-08-02] MEDS: Famotidine 20 MG TAB PO SCH (09:19)
[2017-08-02] MEDS: Insulin Detemir 100 UNITS/ML 22 UNITS in Pre-Filled Syringe 1 EACH SC SCH (11:13)
--- NOTE | 2017-08-02 11:37 | PRG ---
DATE OF SERVICE: 08/02/2017 SUBJECTIVE: This is a 61-year-old female being seen for end-stage renal disease. The patient denies any nausea, vomiting or chest pain. OBJECTIVE: GENERAL: The patient is awake and alert. VITAL SIGNS: Afebrile. Pulse 77, breathing at 16 and blood pressure 139/66. HEAD/NECK: Normocephalic. Atraumatic. EYES: EOMI. No deformity. EARS: Clear. No ulcers. NOSE: Intact. No lesions. MOUTH: Clear. No discharge. THROAT: Clear. No exudate. LUNGS: Clear. No crackles. CARDIAC: S1, S2. No rub. ABDOMEN: Benign. BS+. GENITALIA/RECTUM: Mosley absent. BACK/EXTREMITIES: Edema 0+. Ulcer-. NEUROLOGICAL: Alert and motor intact. SKIN: Rash-. Bruise-. LYMPHATICS: Edema-. Ulcer-. LABORATORY DATA: Showed hemoglobin of 13.5 . Creatinine is 3.1. ASSESSMENT AND RECOMMENDATIONS: 1. Acute kidney injury with chronic kidney disease, nonoliguric, improving. No indication for dialy sis. 2. Hypertension, stable. 3. Anemia, stable. 4. Medications based on glomerular filtration rate are appropriate. No indication for dialysis at t his time.
[2017-08-02 12:37] VITALS: BP 174/84; TEMP 98.2
--- NOTE | 2017-08-30 13:07 | EKG ---
Test Reason : Blood Pressure : / mmHG Vent. Rate : 070 BPM Atrial Rate : 070 BPM P-R Int : 150 ms QRS Dur : 070 ms QT Int : 386 ms P-R-T Axes : 058 003 095 degrees QTc Int : 416 ms Atrial fibrillation rate controlled Septal infarct , age undetermined Abnormal ECG Confirmed by GERI VARGAS M.D. ([id number]), assignment desk editor RENETTA BALS ([id number]) on 08/30/2017 1:07:17 PM Referred By: Confirmed By:GERI VARGAS M.D.
== END 2017-08-02 13:00 | disposition home or self-care (01) | DRG 683 ==
LOC: ERS 19:04 → IMCU/EMU 22:37 → 2NO 07-31 18:36
PROVIDERS: ADMIT Internal Medicine; ATTEND Internal Medicine
DX: N17.9 Acute kidney failure, unspecified (principal); D69.3 Immune thrombocytopenic purpura; E11.22 Type 2 diabetes mellitus with diabetic chronic kidney disease; E11.42 Type 2 diabetes mellitus with diabetic polyneuropathy; N39.0 Urinary tract infection, site not specified; Z68.41 Body mass index [BMI] 40.0-44.9, adult; I12.9 Hypertensive chronic kidney disease with stage 1 through stage 4 chronic kidney disease, or unspecified chronic kidney disease; I48.0 Paroxysmal atrial fibrillation; N18.5 Chronic kidney disease, stage 5; E87.70 Fluid overload, unspecified; Z86.73 Personal history of transient ischemic attack (TIA), and cerebral infarction without residual deficits; D72.829 Elevated white blood cell count, unspecified; M51.26 Other intervertebral disc displacement, lumbar region; D64.9 Anemia, unspecified; B96.89 Other specified bacterial agents as the cause of diseases classified elsewhere; E66.01 Morbid (severe) obesity due to excess calories; Z91.14 Patient's other noncompliance with medication regimen; Z90.81 Acquired absence of spleen; I49.9 Cardiac arrhythmia, unspecified; I25.2 Old myocardial infarction; Z90.49 Acquired absence of other specified parts of digestive tract; F17.210 Nicotine dependence, cigarettes, uncomplicated
CPT/HCPCS: 36415; 36416; 71020; 80048; 80053; 81015; 82553; 83880; 84484; 85025; 85610; 85730; 87040; 87077; 87086; 87186; 93005; 93306; 94760; 96365; 96366; 96368; 96375; A4216; G8978-GP-CL; G8979-GP-CJ; G8987-GO-CK; G8988-GO-CJ; J1644; J1815; J1940

== ENCOUNTER 2018-03-09 19:48 | Emergency (ER) | payer OTHER, SELFPAY ==
[2018-03-09] MEDS ORDERED: predniSONE 20 MG TAB ONE (21:21)
[2018-03-09] MEDS ORDERED: Famotidine 20 MG TAB ONE (21:21)
== END 2018-03-09 22:04 | disposition home or self-care (01) ==
LOC: ERS 19:48
DX: D69.6 Thrombocytopenia, unspecified (principal); D69.3 Immune thrombocytopenic purpura; I25.2 Old myocardial infarction; E78.5 Hyperlipidemia, unspecified; I48.91 Unspecified atrial fibrillation; K21.9 Gastro-esophageal reflux disease without esophagitis; I13.0 Hypertensive heart and chronic kidney disease with heart failure and stage 1 through stage 4 chronic kidney disease, or unspecified chronic kidney disease; E11.22 Type 2 diabetes mellitus with diabetic chronic kidney disease; N18.4 Chronic kidney disease, stage 4 (severe); I50.9 Heart failure, unspecified; D50.9 Iron deficiency anemia, unspecified; Z87.891 Personal history of nicotine dependence; Z79.4 Long term (current) use of insulin; Z79.899 Other long term (current) drug therapy
CPT/HCPCS: 99284; J7506